=== PATIENT | female | born 1990 | race Caucasian/White ===

== ENCOUNTER 2017-07-09 22:45 | Emergency (ER) | payer OTHER, SELFPAY ==
[2017-07-09 22:45] VITALS: BP 138/74; PULSE 117; RESP 14; TEMP 37; O2SAT 100; BMI 19.7
--- NOTE | 2017-07-09 22:59 | CT_ITS ---
STUDY: CT ABDOMEN AND PELVIS WITHOUT CONTRAST REASON FOR EXAM: Female, 27 years old. Right-sided abdominal pain. Vomiting. RADIATION DOSAGE (If Supplied By Facility): CTDIvol = ( 6.04 ) mGy, DLP = ( 271.80 ) mGycm TECHNIQUE: Transaxial images were obtained from the dome of the diaphragm to the symphysis pubis without oral contrast, and without intravenous contrast. Sagittal and coronal images were reconstructed. Individualized dose optimization techniques were used for this CT. COMPARISON: None. FINDINGS: The visualized lung bases are unremarkable. The visualized portions of the heart are within normal limits. There is elongation of the right lobe of the liver consistent with a Erna's lobe. Normal gallbladder and extrahepatic biliary system. Normal spleen. Normal pancreas. Normal bilateral adrenal glands. Normal right kidney. Normal left kidney. Evaluation of the GI tract is limited by absence of oral contrast. Cannot exclude stomach wall thickening. No dilated loops of bowel or evidence for obstruction. Cannot exclude segmental thickening of the hartman of the small or large bowel. Cannot exclude enteritis or colitis. Moderate diffuse fecal retention. Appendix within normal limits. Normal abdominal aorta. Normal inferior vena cava. Normal retroperitoneum. Normal urinary bladder. Normal visualized uterus. There is a 4.3 cm cystic mass of the left ovary/adnexa. Pelvic ultrasound recommended. Normal abdominal wall. Mild dextroconvex scoliosis of the thoracolumbar spine, otherwise normal osseous structures. CT/Abdomen/Pelvis without Cont IMPRESSION: 4.3 cm cystic mass of the left ovary/adnexa. Pelvic ultrasound recommended. Moderate diffuse fecal retention. Electronically Signed: Carmelo Smith MD at 23:37 EDT , Service support ,
[2017-07-09 23:16] LABS: Absolute Lymphocyte Count 2.22 X10^3/ul (0.83-4.51); Absolute Neutrophil Count 7.7 X10^3/uL (2.0-7.7); Basophil# 0.03 X10^3/uL; Basophil% 0.3 % (0-1); Eosinophil# 0.08 X10^3/uL; Eosinophils% 0.7 % (0-5); Hematocrit 34.6 % (37-47); Hemoglobin 11.9 g/dl (12.0-15.0); Lymphocyte # 2.22 X10^3/ul (4.0); Lymphocyte % 20.2 % (19-41); Mean Corp Hgb Conc 34.4 g/gl (32-36); Mean Corpuscular Hgb 28.6 pg (27.0-32.0); Mean Corpuscular Volume 83.2 fL (81-99); Mean Platelet Vol. 9.7 fl (6.2-12.0); Monocyte# 0.92 X10^3/uL; Monocyte% 8.4 % (0-10); Neutrophil # 7.73 X10^3/uL (2.7-7.7); Neutrophil % 70.2 % (47-70); Platelet Count 279 K/mm3 (150-450); RBC Distribution Width CV 12.4 % (11.6-14.6); RBC Distribution Width SD 37.5 fl (35.1-43.9); Red Blood Count 4.16 M/mm3 (4.2-5.4)
[2017-07-09 23:18] LABS: POSITIVE COUNT NO; POSITIVE DIFFERENTIAL NO; POSITIVE MORPHOLOGY NO
[2017-07-09 23:23] LABS: Anion Gap 9 (5-15); BUN 11 mg/dL (7-18); BUN/Creat Ratio 16.2 RATIO (10-20); Calcium,Total 8.3 mg/dL (8.5-10.1); Chloride 109 mmol/L (98-107); Creatinine, Serum 0.68 mg/dL (0.55-1.02); EST Glomerular Filtration Rate 111 mL/min (>60); Est Glom Filt Rate - Afr Amer 135 mL/min (>60); Estimated Creatinine Clearance 96.96 ml/min; Glucose 88 mg/dL (74-106); Potassium 3.3 mmol/L (3.5-5.1); Sodium Level 141 mmol/L (136-145)
[2017-07-09 23:41] LABS: Red Blood Cells-Urine 0 SEEN /hpf (0-5); White Blood Cells 0 SEEN /hpf (0-5)
[2017-07-09 23:42] LABS: Color, Urine Yellow (Yellow); Glucose, Dipstick Normal (Normal); Ketone-Dipstick 50 mg/dl (Negative); Leukocyte Esterase-Dipstick Negative /ul (Negative); Nitrite-Dipstick Negative (Negative); Occult Blood-Urine 25 /ul (Negative); Protein-Dipstick Negative (Negative); Urine Bilirubin Dipstick Negative (Negative); Urine Clarity Clear (Clear); Urine Urobilinogen Normal (Normal)
[2017-07-09] MEDS: Ketorolac 30 MG/ML Syringe IV (23:43)
--- NOTE | 2017-07-09 23:46 | US_ITS ---
STUDY: ULTRASOUND TRANSVAGINAL CLINICAL: Female, 27 years old. pelvic pain; f/u CT; pt is on BC implant and has been bleeding non-stop for 3 years now. TECHNIQUE: Transvaginal COMPARISON: None. FINDINGS: Normal uterine size measuring 12.1 x 5.3 x 4.6 cm in maximal craniocaudal dimension. There are no myometrial masses. Normal endometrial thickness measuring 2 mm. There are no endometrial masses, and there is no fluid in the endometrial cavity. Normal uterine cervix. Normal right ovary, measuring 2.3 x 2.1 x 1.3 cm. There are multiple follicles without a dominant cyst. Normal left ovary, measuring 4.4 x 2.8 x 3.1 cm. There are multiple follicles with a dominant cyst measures 2.9 x 2.7 x 2.3 cm.. There is no free fluid in the pelvis. Polycystic ovary disease: No. US/Transvaginal Non- IMPRESSION: Left ovarian cyst measures 2.9 x 2.7 x 2.3 cm. Electronically Signed: Susie Abreu MD at 0:36 EDT Tel , Service support ,
[2017-07-09 23:48] LABS: Bacteria RARE /hpf (None Seen); Mucous, Urine 1+ /hpf (<or=2+); Squamous Epithelial Cells - UA 0-5 SEEN /hpf (5-10)
[2017-07-10 00:47] VITALS: RESP 18
--- NOTE | 2017-07-10 00:50 | ED.DCSUM_ITS ---
- ER Visit Summary Date of Service: 07/10/17 Chief Complaint: [Abdominal pain] History of Present Illness: The patient is a 27 F [presents to the emergency department with abdominal pain that she has had for about a week. Patient describes intermittent pain lasting anywhere from 5-15 minutes. Patient has not noticed anything that might trigger it. She has had some nausea and she did vomit once prior to arrival today. Patient denies any diarrhea or blood in the stool. Patient states that food does not typically affected. Patient was seen earlier today at [facility] and had a urinalysis and a which were both negative. Patient also had a pelvic exam and some pelvic cultures sent. Patient denies any abnormal vaginal discharge. Patient is on control and uses Nexplanon. Patient states she had vaginal bleeding related to the Nexplanon but it stopped about a week ago when her pain started. Patient had an outpatient ultrasound ordered for next week.] Patient having normal bowel movements and last bowel movement was yesterday. Physical Examination: [HEENT-PERRLA, EOMI. Cranial nerves II through XII grossly intact. TMs clear. Mucous membranes moist. No adenopathy. Cardiovascular-regular rate and rhythm without murmur or ectopy Lungs-clear to auscultation, chest wall stable without crepitus or subcu emphysema Abdomen-normoactive bowel sounds, soft, nontender, no rebound or rigidity, no peritoneal signs. Extremities-intact ?4, normal range of motion, normal pulses, atraumatic] Test Results: [CBC with differential obtained showed a white blood cell count of 11.0, hemoglobin 11.9, hematocrit 35, platelets 279. Temperature is were normal. Urinalysis was normal. CT flank showed a 4.3 cm cystic mass over the left ovary and recommended obtaining an ultrasound. 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 It may contain incorrect words, spelling, and punctuation that were not noted in review of the chart prior to signing ED Disposition - Plan for ED Patient: Chief Complaint: Abd Pain Referrals: Care Physician,No Primary [Primary Care Provider] -
--- NOTE | 2017-07-10 00:50 | ED.DEP ---
ED Disposition - Plan for ED Patient: Chief Complaint: Abd Pain Instructions: ED Abdominal Pain Unkn Cause, ED Cyst Ovarian, What Is Polycystic Ovary Syndrome? Referrals: Care Physician,No Primary [Primary Care Provider] - Ivette Lares MD [STAFF PHYSICIAN] - 3-5 Days
== END 2017-07-10 01:09 | disposition home or self-care (01) ==
LOC: ED 23:46
PROVIDERS: Emergency Provider Emergency Medicine
DX: N83.202 Unspecified ovarian cyst, left side (principal); R10.9 Unspecified abdominal pain
CPT/HCPCS: 74176; 76830; 80048; 81001; 85025; 93976; 96374; 99283; A4216

== ENCOUNTER → 2017-07-16 15:20 | Outpatient (CLI) | payer OTHER, SELFPAY ==
[2017-07-16 16:50] LABS: CRP < 2.90 mg/L (0.0-3.0)
[2017-07-18 09:14] LABS: Cancer Antigen 125 11.4 U/mL (0.0-38.1)
== END ==
PROVIDERS: Visit Provider Obstetrics & Gynecology Gynecology
DX: R10.31 Right lower quadrant pain (principal)
CPT/HCPCS: 36415; 86140; 86304

== ENCOUNTER → 2017-07-19 17:45 | Outpatient (CLI) | payer OTHER, SELFPAY ==
--- NOTE | 2017-07-19 17:48 | CT_ITS ---
STUDY: CT ABDOMEN AND PELVIS WITH CONTRAST REASON FOR EXAM: Female, 27 years old. Right lower quadrant pain. History of ovarian cyst. RADIATION DOSAGE (If Supplied By Facility): CTDIvol = ( 7.31 ) mGy, DLP = ( 210.02 ) mGycm TECHNIQUE: Transaxial images were obtained from the dome of the diaphragm to the symphysis pubis with oral contrast. 100 ml of Isovue 300 contrast was administered. Sagittal and coronal images were reconstructed. Individualized dose optimization techniques were used for this CT. COMPARISON: Noncontrast CT abdomen and pelvis as well as pelvic ultrasound July 09, 2017. FINDINGS: The visualized lung bases are unremarkable. The visualized portions of the heart are within normal limits. Elongated right lobe of the liver is 19.2 cm in height. The patent portal vein diameter is 16 mm. Normal gallbladder and extrahepatic biliary system. Normal spleen. Normal pancreas. Normal bilateral adrenal glands. Normal right kidney. Normal left kidney. No hydronephrosis. Normal visualized stomach. Normal small intestine. Normal colon. Incidental note of the cecum resides in the posterior low abdomen adjacent to the upper rectum. There is non-visualization of the appendix. Normal abdominal aorta. Normal inferior vena cava. Normal retroperitoneum. Normal urinary bladder. Normal visualized uterus. [place] 1.65 x 0.8 x 1.3 cm low-density in the left ovary (series 2 image 76, series 601 image 52) may be a follicular cyst or remnant of the larger left ovarian cyst seen on previous imaging. The right ovary is unremarkable. Normal abdominal wall. There is a mild S-shaped scoliosis of the lumbar spine. A 13.35 degree dextroscoliosis is centered at L1-2, while an 11.85 degree levoscoliosis is centered at L4-5. There are early degenerative arthrosis of the bilateral sacroiliac joints. CT/Abdomen/Pelvis WITH Contrast IMPRESSION: 1. Possible 1.65 cm follicle in the left ovary may be a remnant of the 3 cm left ovarian cyst seen July 09, 2017. The right ovary and uterus are unremarkable. 2. The bowel is unremarkable without signs of obstruction. The appendix is not visualized. 3. No hydronephrosis. 4. Stable mild S-shaped scoliosis of the lumbar spine. Electronically Signed: Jhon Herrmann MD at 19:06 EDT , Service support ,
== END ==
PROVIDERS: Visit Provider Obstetrics & Gynecology Gynecology
DX: R10.31 Right lower quadrant pain (principal)
CPT/HCPCS: 74177; Q9967

== ENCOUNTER 2018-02-11 15:32 | Emergency (ER) | payer OTHER, SELFPAY ==
[2018-02-11 15:33] VITALS: BP 128/73; PULSE 83; RESP 17; TEMP 36.9; O2SAT 100; BMI 19.7
--- NOTE | 2018-02-11 15:46 | CT_ITS ---
STUDY: CT ABDOMEN AND PELVIS WITH CONTRAST REASON FOR EXAM: Female, 27 years old. Right lower quadrant pain RADIATION DOSAGE (If Supplied By Facility): CTDIvol = ( 9.33 ) mGy, DLP = ( 243.31 ) mGycm TECHNIQUE: Transaxial images were obtained from the dome of the diaphragm to the symphysis pubis without oral contrast. 100 ml of Isovue 300 contrast was administered. Sagittal and coronal images were reconstructed. Individualized dose optimization techniques were used for this CT. COMPARISON: July 19, 2017. FINDINGS: The visualized lung bases are unremarkable. The visualized portions of the heart are within normal limits. Normal liver. Normal gallbladder and extrahepatic biliary system. Normal spleen. Normal pancreas. Normal bilateral adrenal glands. Normal right kidney. Normal left kidney. Normal visualized stomach. Normal small intestine. Diffuse fecal retention in the colon. The appendix is visualized and appears normal. Normal abdominal aorta. Normal inferior vena cava. Normal retroperitoneum. Normal urinary bladder. Normal uterus. Possible left adnexal cystic lesions up to 2.8 cm, larger since the previous study. Correlate with pelvic ultrasound is recommended. Normal abdominal wall. Scoliosis is again noted. Spondylolysis at L5. CT/Abdomen/Pelvis WITH Contrast IMPRESSION: Diffuse colonic fecal retention. Left adnexal cystic lesions. Correlate with pelvic ultrasound is recommended. Normal appendix. Electronically Signed: Reza Infante DO at 18:21 EDT Tel [phone], Service support ,
--- NOTE | 2018-02-11 15:55 | ED.VISSUMM ---
- ER Visit Summary Date of Service: 02/11/18 Chief Complaint: Abdominal pain History of Present Illness: The patient is a 27 F presenting with right lower quadrant abdominal pain. She states this started on Wednesday. Pain has been intermittent. She has nausea with no vomiting. Denies diarrhea constipation. She has mild dysuria. She denies hematuria or frequency. Denies possibility of . She has history of previous ovarian cyst. She denies fever or other complaints Physical Examination: Vitals are stable. Patient is afebrile. Alert no acute distress. HEENT exam is unremarkable. Neck is supple. Lungs are clear and equal bilaterally. Heart is regular rate and rhythm. Abdomen is soft mild right lower quadrant tenderness with no rebound or guarding Extremities are unremarkable. Skin is warm and dry. Remainder of exam is unremarkable. Emergency Department Course and Treatment: Patient was given IV fluids. She declined pain medication. CBC, chemistries unremarkable other than potassium 3.4. Liver lipase normal. Urinalysis unremarkable. HCG negative. CT abdomen/pelvis shows diffuse colonic fecal retention. Left adnexal cystic lesions. Correlate with pelvic ultrasound is recommended. Normal appendix. Pelvic ultrasound shows left ovarian cyst. On reevaluation, patient is resting comfortably. She is advised to follow-up with her HEALTH INFORMATION TECHNOLOGIST. She is advised to return to ED for any worsening complaints. Disposition: Discharge home Impression: Left ovarian cyst This note was generated with [employer] dictation software. It may contain incorrect words, spelling, and punctuation that were not noted in review of the chart prior to signing ED Disposition - Plan for ED Patient: Chief Complaint: Abd Pain Instructions: ED Cyst Ovarian Referrals: Ivette Lares MD [STAFF PHYSICIAN] - Care Physician,No Primary [Primary Care Provider] -
[2018-02-11] MEDS: 0.9% Normal Saline 1,000 ML 1000 ML IV (15:56)
[2018-02-11 16:07] LABS: Bacteria 0 SEEN /hpf (None Seen); Mucous, Urine 0 SEEN /hpf (<or=2+); Red Blood Cells-Urine 0 SEEN /hpf (0-5); Squamous Epithelial Cells - UA 0 SEEN /hpf (5-10); White Blood Cells 0 SEEN /hpf (0-5)
[2018-02-11 16:14] LABS: Absolute Lymphocyte Count 2.07 X10^3/ul (0.83-4.51); Absolute Neutrophil Count 3.9 X10^3/uL (2.0-7.7); Basophil# 0.03 X10^3/uL; Basophil% 0.5 % (0-1); Eosinophil# 0.03 X10^3/uL; Eosinophils% 0.5 % (0-5); Hematocrit 39.7 % (37-47); Hemoglobin 13.2 g/dl (12.0-15.0); Lymphocyte # 2.07 X10^3/ul (4.0); Lymphocyte % 31.2 % (19-41); Mean Corp Hgb Conc 33.2 g/gl (32-36); Mean Corpuscular Hgb 28.3 pg (27.0-32.0); Mean Corpuscular Volume 85.2 fL (81-99); Mean Platelet Vol. 9.5 fl (6.2-12.0); Monocyte# 0.59 X10^3/uL; Monocyte% 8.9 % (0-10); Neutrophil # 3.91 X10^3/uL (2.7-7.7); Neutrophil % 58.7 % (47-70); Platelet Count 283 K/mm3 (150-450); RBC Distribution Width CV 12.7 % (11.6-14.6); RBC Distribution Width SD 38.9 fl (35.1-43.9); Red Blood Count 4.66 M/mm3 (4.2-5.4); White Blood Count 6.6 K/mm3 (4.4-11.0)
[2018-02-11 16:16] LABS: Color, Urine Yellow (Yellow); Glucose, Dipstick Normal (Normal); Ketone-Dipstick 5 mg/dl (Negative); Leukocyte Esterase-Dipstick 25 /ul (Negative); Nitrite-Dipstick Negative (Negative); Occult Blood-Urine 50 /ul (Negative); Protein-Dipstick Negative (Negative); Specific Gravity, Urine 1.015 (1.002-1.030); Urine Bilirubin Dipstick Negative (Negative); Urine Clarity Sl. Cloudy (Clear); Urine Urobilinogen Normal (Normal)
[2018-02-11 16:16] LABS: POSITIVE COUNT NO; POSITIVE DIFFERENTIAL NO; POSITIVE MORPHOLOGY NO
[2018-02-11 16:25] LABS: AST(SGOT) 21 U/L (15-37); Alanine Aminotransfer ALT/SGPT 24 U/L (13-56); Albumin, Serum 4.1 g/dL (3.2-5.0); Alkaline Phosphatase 60 U/L (45-117); Anion Gap 9 (5-15); BUN 8 mg/dL (7-18); BUN/Creat Ratio 10.1 RATIO (10-20); Bilirubin, Direct 0.19 mg/dL (0.00-0.30); Calcium,Total 8.7 mg/dL (8.5-10.1); Chloride 106 mmol/L (98-107); Creatinine, Serum 0.79 mg/dL (0.55-1.02); EST Glomerular Filtration Rate 92 mL/min (>60); Est Glom Filt Rate - Afr Amer 112 mL/min (>60); Estimated Creatinine Clearance 83.31 ml/min; Globulin 3.7 g/dL (2.2-4.2); Glucose 85 mg/dL (74-106); Lipase 131 U/L (73-393); Potassium 3.4 mmol/L (3.5-5.1); Protein, Total 7.8 g/dL (6.4-8.2); Sodium Level 139 mmol/L (136-145)
[2018-02-11 16:31] LABS: Pregnancy, Serum, hCG Quali. NEGATIVE Negative (0-9 Nonpreg)
[2018-02-11 17:32] VITALS: RESP 16
--- NOTE | 2018-02-11 18:26 | US_ITS ---
STUDY: ULTRASOUND OF THE FEMALE PELVIS - COMPLETE REASON FOR EXAM: Female, 27 years old. Pelvic pain TECHNIQUE: Transabdominal and endovaginal TECHNICAL QUALITY: Adequate. COMPARISON: None. FINDINGS: The uterus is anteverted and is in a midline position. The uterus measures 8.4 x 5.2 x 3.9 cm. Mild fluid within cervical canal. The endometrium measures 3 mm in thickness, and is hyperechoic. There is trace endometrial fluid. There is no demonstrated myometrial mass. The patient does not have an I.U.D. The right ovary is visualized. The right ovary measures 3.3 x 2.2 x 2.4 cm. There is no right ovarian cyst or ovarian mass. There is no visualized right adnexal mass or complex lesion. There is normal arterial and normal venous vascularity. The left ovary is visualized. The left ovary measures 4.6 x 3.0 x 3.0 cm. There is a 2.8 cm left ovarian cyst. There is normal arterial and normal venous vascularity. There is mild to moderate fluid in the cul-de-sac. US/Transvaginal Non- IMPRESSION: Left ovarian cyst. Trace endometrial fluid. Fluid in the cervical canal. Mild to moderate pelvic free fluid. Electronically Signed: Reza Infante DO at 19:59 EDT Tel [phone], Service support ,
[2018-02-11 19:00] VITALS: RESP 16
--- NOTE | 2018-02-11 20:12 | ED.DEP ---
ED Disposition - Plan for ED Patient: Chief Complaint: Abd Pain Instructions: ED Cyst Ovarian Referrals: Care Physician,No Primary [Primary Care Provider] - Ivette Lares MD [STAFF PHYSICIAN] -
[2018-02-11 20:22] VITALS: BP 114/64; PULSE 67; RESP 18; O2SAT 99
--- NOTE | 2018-02-11 20:23 | ED.RN ---
REVIEWED D/C INSTRUCTIONS, FOLLOW UP CARE, AND S/S THAT WOULD WARRANT A RETURN TO THE ED WITH PT. PT VERBALIZED AN UNDERSTANDING AND DENIES FURTHER QUESTIONS FOR THIS RN. PT SKIN P/W/D, RESP EVEN AND UNLABORED, PT A&O X 3, NO DISTRESS NOTED. PT AMBULATED OUT OF ED, GAIT STEADY.
== END 2018-02-11 20:24 | disposition home or self-care (01) ==
PROVIDERS: Emergency Provider Emergency Medicine
DX: N83.202 Unspecified ovarian cyst, left side (principal)
CPT/HCPCS: 74177; 76830; 80048; 80076; 81001; 83690; 84703; 85025; 93976; 96360; 96361; 99283; J7030; Q9967; A4216

== ENCOUNTER → 2019-07-26 16:12 | Outpatient (CLI) | payer OTHER, SELFPAY ==
[2019-07-26 18:12] LABS: ALB/GLOB Ratio 1.1 RATIO (0.9-2.4); AST(SGOT) 31 U/L (15-37); Alanine Aminotransfer ALT/SGPT 38 U/L (13-56); Albumin, Serum 4.1 g/dL (3.2-5.0); Alkaline Phosphatase 77 U/L (45-117); Anion Gap 6 (5-15); BUN 8 mg/dL (7-18); BUN/Creat Ratio 11.2 RATIO (10-20); Calcium,Total 9.1 mg/dL (8.5-10.1); Chloride 106 mmol/L (98-107); Creatinine, Serum 0.72 mg/dL (0.55-1.02); EST Glomerular Filtration Rate 103 mL/min (>60); Est Glom Filt Rate - Afr Amer 125 mL/min (>60); Globulin 3.8 g/dL (2.2-4.2); Glucose 85 mg/dL (74-106); Protein, Total 7.9 g/dL (6.4-8.2); Sodium Level 138 mmol/L (136-145); T4 Total, Thyroxin 8.6 ug/dL (4.8-13.9)
[2019-07-26 18:31] LABS: T3 Total - Triiodothyronine 1.31 ng/mL (0.6-1.81)
[2019-07-26 19:00] LABS: Color, Urine Straw (Yellow); Glucose, Dipstick Normal (Normal); Ketone-Dipstick Negative (Negative); Leukocyte Esterase-Dipstick Negative /ul (Negative); Nitrite-Dipstick Negative (Negative); Occult Blood-Urine 10 /ul (Negative); Protein-Dipstick Negative (Negative); Urine Bilirubin Dipstick Negative (Negative); Urine Clarity Clear (Clear); Urine Urobilinogen Normal (Normal); Urine pH 6.5 (5.0 - 8.0)
[2019-07-26 19:07] LABS: Absolute Lymphocyte Count 2.08 X10^3/uL (0.83-4.51); Absolute Neutrophil Count 3.1 X10^3/uL (2.0-7.7); Basophil# 0.13 X10^3/uL; Basophil% 2.1 % (0-1); Eosinophils% 3.2 % (0-5); Hematocrit 41.2 % (37-47); Hemoglobin 13.7 g/dL (12.0-15.0); Lymphocyte # 2.08 X10^3/ul (4.0); Lymphocyte % 33.7 % (19-41); Mean Corp Hgb Conc 33.3 g/dL (32-36); Mean Corpuscular Hgb 28.9 pg (27.0-32.0); Mean Corpuscular Volume 86.9 fL (81-99); Mean Platelet Vol. 9.5 fl (6.2-12.0); Monocyte% 9.7 % (0-10); NRBC Flagged by Analyzer 0 % (0-5); Neutrophil # 3.14 X10^3/uL (2.7-7.7); Platelet Count 350 K/mm3 (150-450); RBC Distribution Width CV 11.9 % (11.6-14.6); RBC Distribution Width SD 38.4 fl (35.1-43.9); Red Blood Count 4.74 M/mm3 (4.2-5.4); White Blood Count 6.2 K/mm3 (4.4-11.0)
[2019-07-26 19:13] LABS: Erythrocyte Sedimentation Rate 2 mm/hr (0-20)
[2019-07-28 19:21] LABS: Thyroid Peroxidase AB < 9 IU/mL (0-34)
[2019-07-28 19:33] LABS: Anti-Nuclear Antibody Test Negative (.)
== END ==
PROVIDERS: PCP Internal Medicine; Referring Provider Dermatology Pediatric Dermatology; Visit Provider Dermatology Pediatric Dermatology
DX: L95.8 Other vasculitis limited to the skin (principal); I73.00 Raynaud's syndrome without gangrene; R23.8 Other skin changes; D69.2 Other nonthrombocytopenic purpura; R60.0 Localized edema; L53.8 Other specified erythematous conditions
CPT/HCPCS: 36415; 80053; 81002; 84436; 84480; 85025; 85652; 86038; 86376